=== PATIENT | male | born 1965 | race Caucasian/White ===

== ENCOUNTER 2016-08-16 11:10 | Emergency (ER) | payer BC ==
[~2016-08-16 11:10] MED LIST: FLEXERIL10 MG PO; HYDROCODONE-APA1 T54 PO; NO MEDICATIONS; PEPCID PO; PERCOCET5/325 PO; PHENERGAN PO; PHENERGAN25 MG PO; VICODIN 5/500 T1 TAB PO; VOLTAREN75 MG PO
== END 2016-08-16 12:28 | disposition home or self-care (01) ==
LOC: CED 11:10 → CFTX 11:10
DX: M54.12 Radiculopathy, cervical region (principal); M54.14 Radiculopathy, thoracic region; M54.42 Lumbago with sciatica, left side; I10 Essential (primary) hypertension; F17.210 Nicotine dependence, cigarettes, uncomplicated; Z90.49 Acquired absence of other specified parts of digestive tract; Z87.891 Personal history of nicotine dependence; Z88.5 Allergy status to narcotic agent; Z88.8 Allergy status to other drugs, medicaments and biological substances
CPT/HCPCS: 99282

== ENCOUNTER → 2016-10-27 | Outpatient (CLI) | payer BC ==
--- NOTE | ~2016-10-27 | CR58 ---
[facility] A Service of [facility] RADIOLOGY TEXT RESULTS PATIENT: BRITNEY MYERS SR LOCATION: [facility] : 69 UNIT #: [id number] AGE: [address]: TAMARA HARRIS APRN SEX: M ORDER DR: [id number] [facility] [address] [place], [place] [address] [id number] O MR#: [id number] Acc #: [id number] NAME: BRITNEY MYERS : 1965 SEX: M STUDY DATE/TIME: 10/27/2016 13:44 UNIT: [facility] ROOM: STUDY DESCRIPTION: CR Cervical Spine 2 or 3 Views Attending Physician: Tmaara Harris A.P.R.N. Referring Physician: Tamara Harris A.P.R.N. Ordering Physician: Tamara Harris A.P.R.N. Primary Care Physician: Thalia Schreiber M.D. MEDICAL IMAGING REPORT This report is preliminary unless electronic signature is present EXAM Cervical spine, 3 view series. INDICATIONS Cervical spondylosis. Neck pain. Patient had surgery C5-C7 fusion on September 19. Follow up surgery. COMPARISON 08/07/2016 FINDINGS AP, lateral and odontoid views of the cervical spine were obtained. Metal plate has been placed at C5, C6 and C7, and is attached by two screws at each level. The alignment is normal. I believe the discs have been replaced at those levels. The other disc spaces are normal. IMPRESSION Status post anterior fusion C5, 6 and 7. No subluxation is identified. Dictated by... Perry Zavala M.D. THIS IS AN ELECTRONICALLY VERIFIED REPORT Perry Zavala M.D. at 10/29/2016 9:34 PM CHERYL/carissa TD: 10/28/2016 22:09 JOB #: [id number] MEDICAL IMAGING REPORT [facility] A Service [facility] RADIOLOGY TEXT RESULTS PATIENT: BRITNEY MYERS SR LOCATION: [facility] : 69 UNIT #: [id number] AGE: [address]: TAMARA HARRIS APRN SEX: M ORDER DR: Page 1 of 1 COPY
== END | disposition home or self-care (01) ==
LOC: CRAD 13:22
DX: M47.22 Other spondylosis with radiculopathy, cervical region (principal); Z98.1 Arthrodesis status
CPT/HCPCS: 72040